=== PATIENT | female | born 1995 | race Caucasian/White ===

== ENCOUNTER 2021-01-10 18:41 | Emergency (ER) | payer MEDICAID, OTHER ==
[2021-01-10] MEDS ORDERED: Ketorolac 15 MG/ML SDV IM ONE (20:52)
[2021-01-10] MEDS ORDERED: Cephalexin 500 MG Cap PO ONE (21:21)
--- NOTE | 2021-01-10 21:23 | EDM.PDOC ---
ED HPI GENERAL MEDICAL PROBLEM - General Chief Complaint: Genitourinary Problem Stated Complaint: POSSIBLE KIDNEY INFECTION Time Seen by Provider: 01/10/21 20:35 - History of Present Illness INITIAL COMMENTS - FREE TEXT/NARRATIVE: CHIEF COMPLAINT(S): "Kidney infection." HISTORY OF PRESENT ILLNESS: This is a 25-year-old woman without any significant past medical history who comes to the emergency department with a chief compl aint of "kidney infection." The patient states that she presents to the emergency department with "kidney infection." She states that for the last couple of days she has been experiencing chills, nausea and decreased appetite. She states that she is experiencing groin pain, back pain and stomach pain. She describes the pain as dull rated 4 out of 10 with intermittent sharp episodes rated 7 out of 10. She states that this feels exactly the same as her last kidney infection but denies any dysuria and has some increased urgency. She denies any radiation of this pain. She states that she took Aleve without any relief of the pain. There are no exacerbating factors. She denies any vaginal bleeding or vaginal discharge. She states her last period was 1 week ago. She denies any fevers or shaking. She denies any cough, runny nose or congestion. REVIEW OF SYSTEMS: Constitutional: Denies fever, chills. Eyes: Denies eye pain Ears, Nose, Mouth, & Throat: Denies earache Cardiovascular: Denies chest pain Respiratory: Denies shortness of breath Gastrointestinal: Positive for stomach pain and nausea. Denies vomiting genitourinary: Positive for pelvic pain. Denies hematuria, dysuria, vaginal bleeding, vaginal discharge Skin:Denies a rash MSK: Positive for back pain. Denies joint pain Neurological: Denies blurred vision Psychiatric: Denies depression PAST MEDICAL HISTORY: As per history of present illness and as reviewed below otherwise noncontributory. SURGICAL HISTORY: As per history of present illness and as reviewed below otherwise noncontributory. LMP: 1 week ago SOCIAL HISTORY: As per history of present illness and as reviewed below otherwise noncontributory. FAMILY HISTORY: As per history of present illness and as reviewed below otherwise noncontributory. EXAMINATION OF ORGAN SYSTEMS/BODY AREAS: Constitutional: Blood pressure 160/75, heart rate 111, respiratory rate 16 with an oxygen saturation of 99% on room air. Temperature 36.1 General: Well-appearing woman who is in no acute distress Psychiatric: Appropriate mood and affect. Eyes: No scleral icterus or conjunctival erythema ENMT: Moist mucous membranes. No pharyngeal erythema Cardiovascular: Regular, rate, and rhythm. No gallops, murmurs, or rubs. Bilateral upper extremity pulses symmetric and intact. No peripheral edema. No JVD. Respiratory: Lungs clear to auscultation bilaterally. No wheezes, rales, or rhonchi. Gastrointestinal: Soft, non-tender, non-distended. Normoactive bowel sounds no rebound or guarding. Genitourinary: Mild suprapubic tenderness. No CVA tenderness. Musculoskeletal: Normal range of motion. Skin: No lesions or abrasions. Neurological: Alert, GCS 15 MEDICAL DECISION MAKING AND COURSE IN THE ED WITH INTERPRETATION/REVIEW OF DIAGNOSTIC STUDIES: This is a 25-year-old woman without any significant past medical history who comes to the emergency department with concerns for a kidney infection who has suprapubic tenderness without any CVA tenderness who is mildly tachycardic. At this time we will provide the patient with Toradol for pain relief and obtain a urinalysis and urine culture. We will reevaluate after this. The patient is afebrile is able to tolerate p.o. and appears nontoxic. I do not believe any further labs or imaging are indicated. Laboratory: Urinalysis reveals moderate hematuria with small amount of leukocyte esterase with rare epithelial cells 1+ bacteria and 16-18 WBCs. Interpretation: Positive. hCG is negative. After lab I did discuss the results with the patient. We did send a urine culture. We will provide the patient with Keflex by mouth and send her with a prescription for Keflex. She was given strict return precautions. She was amenable discharge and had no further questions. DISPOSITION: The patient was discharged home in stable condition. The patient will follow up with primary care physician in 3 to 5 days CONDITION: Fair PROCEDURES: None FINAL IMPRESSION(S)/DIAGNOSES: 1. Acute urinary tract infection Duy Mederos M.D. Lower Back Pain Score (Numeric/FACES): 5 - Related Data Allergies Allergy/AdvReac Type Severity Reaction Status Date / Time No Known Allergies Allergy Verified 01/10/21 19:52 Home Meds: Home Meds cephALEXin [Keflex] 500 mg PO BID #14 cap 01/10/21 [Rx] Past Medical History CHIEF PHARMACIST History: Reports: Endometriosis, - Infectious Disease History Infectious Disease History: Reports: Chicken Pox - Past Surgical History Female Surgical History: Reports: Section Musculoskeletal Surgical History: Reports: Other (See Below) Other Musculoskeletal Surgeries/Procedures:: knee surgery Social & Family History - Tobacco Use Tobacco Use Status *Q: Never Tobacco User Second Hand Smoke Exposure: No - Recreational Drug Use Recreational Drug Use: No ED ROS GENERAL - Review of Systems Review Of Systems: See Below ED EXAM, GENERAL - Physical Exam Exam: See Below Course - Vital Signs Last Recorded V/S: Last Vital Signs Temp 36.1 C 01/10/21 19:45 Pulse 104 H 01/10/21 21:37 Resp 17 01/10/21 21:37 BP 157/76 H 01/10/21 21:37 Pulse Ox 98 01/10/21 21:37 - Orders/Labs/Meds Orders: Active Orders 24 hr Category Date Time Status CULTURE URINE [MREF] Stat Lab 01/10/21 18:55 Received Labs: Laboratory Tests 01/10/21 01/10/21 Range/Units 18:55 18:55 Urine Color YELLOW Urine Appearance CLEAR Urine pH 6.5 (5.0-8.0) Ur Specific Floris 1.020 (1.001-1.035) Urine Protein NEGATIVE (NEGATIVE) mg/dL Urine Glucose (UA) NEGATIVE (NEGATIVE) mg/dL Urine Ketones NEGATIVE (NEGATIVE) mg/dL Urine Occult Blood MODERATE H (NEGATIVE) Urine Nitrite NEGATIVE (NEGATIVE) Urine Bilirubin NEGATIVE (NEGATIVE) Urine Urobilinogen 0.2 (<2.0) EU/dL Ur Leukocyte Esterase SMALL H (NEGATIVE) Urine RBC 4-6 (0-2/HPF) Urine WBC 16-18 (0-5/HPF) Ur Epithelial Cells RARE (NONE-FEW) Urine Bacteria 1+ H (NEGATIVE) Urine Mucus LIGHT (NONE-MOD) Urine HCG, Qual NEGATIVE (NEGATIVE) Meds: Medications Discontinued Medications Generic Name Dose Route Start Last Admin Trade Name Freq PRN Reason Stop Dose Admin Cephalexin 500 mg 01/10/21 21:21 01/10/21 21:34 Cephalexin 500 Mg Cap PO 01/10/21 21:22 500 mg ONETIME ONE Administration Ketorolac Tromethamine 15 mg 01/10/21 20:52 01/10/21 21:01 Ketorolac 15 Mg/Ml Sdv IM 01/10/21 20:53 15 mg ONETIME ONE Administration Departure - Departure Time of Disposition: 21:22 Disposition: Home, Self-Care 01 Condition: Fair Clinical Impression: UTI, Urinary tract infectious disease - Discharge Information *PRESCRIPTION DRUG MONITORING PROGRAM REVIEWED*: No *COPY OF PRESCRIPTION DRUG MONITORING REPORT IN PATIENT SHE: No Prescriptions: cephALEXin [Keflex] 500 mg PO BID #14 cap Instructions: Urinary Tract Infection, Adult Referrals: PCP,None [Primary Care Provider] - Forms: ED Department Discharge Additional Instructions: Your evaluated today on an emergent basis. At this time your urine did show a possible infection. We did provide you with antibiotics for this. I recommend you take the complete course of antibiotics that was sent to your pharmacy. If you have any worsening symptoms such as fever, worsening pain I would like you to return to the emergency department. Otherwise please follow-up with your primary care physician within 3 to 5 days. Please use: Tylenol 500-1000mg every 6 hours (DO NOT TAKE MORE THAN 4000mg in 1 day) Ibuprofen 400mg every 6 hours (Take with food as it can cause ulcers, GI upset) Example schedule: 8:00 AM (Tylenol 500-1000mg) 11:00 AM (Ibuprofen 400mg) 2:00 PM (Tylenol 500-1000mg) 5:00 PM (Ibuprofen 400mg) [facility] [address] [place] [address] [place] [address] The patient is informed of any results of their evaluation and diagnostic workup and all questions are answered. They are given discharge instructions and return precautions. The patient is stable for discharge. The patient states they understand and agree with the plan and that they will return if their symptoms get worse or if they have any new concerns. The following information is given to patients seen in the emergency department who are being discharged to home. This information is to outline your options for follow-up care. We provide all patients seen in our emergency department with a follow-up referral. The need for follow-up, as well as the timing and circumstances, are variable depending upon the specifics of your emergency department visit. If you don't have a primary care physician on staff, we will provide you with a referral. We always advise you to contact your personal physician following an emergency department visit to inform them of the circumstance of the visit and for follow-up with them and/or the need for any referrals to a consulting specialist. The emergency department will also refer you to a specialist when appropriate. This referral assures that you have the opportunity for follow-up care with a specialist. All of these measure are taken in an effort to provide you with opt imal care, which includes your follow-up. Under all circumstances we always encourage you to contact your private physician who remains a resource for coordinating your care. When calling for follow-up care, please make the office aware that this follow-up is from your recent emergency room visit. If for any reason you are refused follow-up, please contact the [facility] Emergency Department at and asked to speak to the emergency department charge nurse. Sepsis Event Note (ED) - Evaluation Sepsis Screening Result: No Definite Risk - Focused Exam Vital Signs: Vital Signs Temp Pulse Resp BP Pulse Ox 01/10/21 21:37 104 H 17 157/76 H 98 01/10/21 19:45 36.1 C 111 H 16 160/75 H 99
== END 2021-01-10 21:39 | disposition home or self-care (01) ==
LOC: MW.ED 18:41
DX: N39.0 Urinary tract infection, site not specified (principal)
CPT/HCPCS: 81001; 81025; 87086; 87088; 87186; 96372; 99284; A9270; J1885